=== PATIENT | male | born 1970 | race Caucasian/White ===

== ENCOUNTER → 2019-04-04 17:04 | Outpatient (BNVA) | payer SELFPAY | PROVIDERS: Visit Provider Nurse Practitioner Family | DX: I10 Essential (primary) hypertension (principal) | CPT/HCPCS: 80053; 80061; 84443; 85025 ==

== ENCOUNTER 2020-03-14 04:28 | Emergency (ER) | payer SELFPAY ==
[2020-03-14 04:32] VITALS: BP 127/83; PULSE 87; RESP 14; TEMP 36.7; O2SAT 99; BMI 32.1
[2020-03-14] MEDS: sodium chloride 0.9% 1,000 ML 999 ML IV (04:41)
[2020-03-14] MEDS: ondansetron 2 mg/ML SDV 2 mL 4 MG IVP ×2 (04:41→05:03)
--- NOTE | 2020-03-14 04:43 | ED_ITS ---
HPI - Abdominal Pain General: Chief Complaint: Abdominal Pain Stated Complaint: NAUSEA & UPPER ABD STOMACH PAIN Time Seen by Provider: 03/14/20 04:35 Source: patient Mode of arrival: ambulatory Limitations: no limitations History of Present Illness: HPI narrative: 49-year-old male states he is been having intermittent epigastric pain over the last 2 weeks but got much worse ton ight started midnight. States pain is sharp in nature it is a 7 out of 10. He has had nausea with one episode of vomiting. He denies any worsening improving factors. He has no history of any surgeries. Denies any fevers. MD elicited complaint: abdominal pain Pertinent past history: none Onset (ago): hour(s) Pain Consistency: constant Location: Epigastric Associated Symptoms: Reports nausea and vomiting; Denies chills, dysuria and fever(s) Review of Systems Const: Denies: fever(s), chills, body aches or change in appetite Eyes: Denies: blurry vision or eye discomfort ENMT: Denies: throat pain or dental pain Card: Denies: chest pain Resp: Denies: dyspnea GI: Reports: abdominal pain, nausea and vomiting : Denies: dysuria Musc: Denies: neck pain or back pain Skin/Breast: Denies: rash Neuro: Denies: headache(s) Psych: Denies: depression Lui/Lymph: Denies: easy bruising All/Imm: Denies: urticaria PFSH ED PFSH: Medical History Anxiety Family History Mother Diabetes Brother Diabetes Hypertension Father Cancer Other Lung disease Social History Smoking and tobacco status: current every day smoker cigarettes Packs smoked per day: 1 Years cigarettes smoked: 20 Second hand smoke exposure: No Alcohol intake: never Lives independently: Yes Household members: spouse Housing: House Marital status: Current occupational status: employed 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 History of recent travel: No Current gender identity: Male Physical Exam Const: COMMON NORMALS: no acute distress, patient oriented x3 and healthy appearing HENMT: COMMON NORMALS: normocephalic and atraumatic HEAD & SCALP: normocephalic and atraumatic Eye: COMMON NORMALS: Equal, round and reactive pupils present and EOMs intact bilaterally PUPIL: Yes Equal, round and reactive pupils present Neck/C-Spine: COMMON NORMALS: full ROM and supple Chest: COMMONS NORMALS: normal inspection of the chest and normal palpation of entire chest wall Resp: COMMON NORMALS: normal respiratory effort, No retractions, No use of accessory muscles and clear to auscultation bilaterally AUSCULTATION: clear to auscultation bilaterally Cardio: COMMON NORMALS: regular rate, regular rhythm and No murmurs present (Cardio) RATE: regular rate RHYTHM: regular rhythm GI: COMMON NORMALS: Normal to inspection, nondistended, normoactive bowel sounds present, Soft to palpation and no masses PALPATION: Yes Soft to palpation and Yes Tenderness to palpation present (GI) (epigastric tenderness) Extremity: COMMON NORMALS: normal to inspection and full ROM Neuro: COMMON NORMALS: patient oriented x3, moves all extremities and no focal motor deficits Psych: COMMON NORMALS: mental status grossly normal, Normal thought process present and cooperative THOUGHT PROCESS: Normal thought process present Skin: COMMON NORMALS: no rashes or lesions noted and no wounds GENERAL SKIN EXAM: no rashes or lesions noted Course Vital Signs: Vital signs: Vital Signs Temperature 98.1 F 03/14/20 04:32 Pulse Rate 87 03/14/20 04:32 Respiratory Rate 18 03/14/20 05:06 Blood Pressure 127/83 03/14/20 04:32 Pulse Oximetry 100 03/14/20 05:06 MDM - Abdominal Pain MDM Narrative: Medical decision making narrative: 42 presents with abdominal pain likely from gallstones. He has no signs of acute cholecystitis and his pain is much improved. Patient started on pain meds and will have him follow-up with Dr. Gtz. He is return if worsening. He has no signs of common bile duct blockage. He understands agrees to plan. Lab Data: Labs: Lab Results 03/14/20 03/14/20 Range/Units 04:43 04:43 WBC 13.9 H (4.0-10.0) 10^3/ uL RBC 5.52 H (4.1-5.3) 10^6/u L Hgb 15.9 (11.7-16.6) g/dL Hct 48.1 (42.0-52.0) % MCV 87.1 (80-94) fL MCH 28.8 (28.0-34.0) pg MCHC 33.1 (30.0-36.0) g/dL RDW 14.1 (12.1-15.1) % Plt Count 315 (130-400) 10^3/c mm MPV 9.6 (7.4-10.4) fL Neut % (Auto) 67.8 % Lymph % (Auto) 23.0 % [place] % (Auto) 6.2 % Eos % (Auto) 2.0 % Baso % (Auto) 0.6 % Neut # (Auto) 9.43 H (1.8-7.7) 10^3/u L Lymph # (Auto) 3.2 (0.8-4.8) 10^3/u L [place] # (Auto) 0.9 (0.2-0.9) 10^3/u L Eos # (Auto) 0.3 (0.0-0.8) 10^3/u L Baso # (Auto) 0.1 (0.0-0.1) 10^3/u L Nucleated RBC % (a uto) 0 % Nucleated RBCs # 0.0 /100WBC Sodium 136 (136-145) mmol/L Potassium 4.2 (3.5-5.1) mmol/L Chloride 99 (98-107) mmol/L Carbon Dioxide 25 (22-29) mmol/L Anion Gap 16.2 (5-19) BUN 24 H (6-20) mg/dL Creatinine 0.9 (0.7-1.2) mg/dL GFR Calculation 90.4 (90-130) mL/min Glucose 131 H (65-115) mg/dL Calculated Osmolal ity 288 (285-295) mOsm/k g Calcium 10.0 (8.5-10.5) mg/dL Total Bilirubin 0.2 (0.15-1.2) mg/dL AST 20 (0-40) U/L ALT 27 (0-41) U/L Alkaline Phosphata se 89 (40-130) IU/L Total Protein 7.0 (6.6-8.7) g/dL Albumin 4.7 (3.5-5.2) g/dL Globulin 2.3 (1.3-4.6) g/dL Lipase 32 (13-60) U/L Imaging Data ^: CT Abd/Pel: Radiologist's impression: [employer] [place] [address] CT Scan Report Signed Patient: JOSEPH COYLE Unit #: [id number] : [id number] Acct#:[id number] Age/Sex: 49 / M ADM Date: 03/14/20 Loc: ER Room/Bed: Attending Dr: Ordering Provider/Ordering MD: Leslee Villeda MD Date of Service: 03/14/20 Procedure(s): CT abdomen pelvis w con* [id number] Accession Number(s): [id number] Report Number: [id number] PROCEDURE INFORMATION: Exam: CT Abdomen And Pelvis With Contrast Exam date and time: 03/14/2020 4:43 AM Age: 49 years old Clinical indication: Nausea and vomiting; Abdominal pain; Patient HX: Epigastric pain with n/v; Additional info: Abd pain TECHNIQUE: Imaging protocol: Computed tomography of the abdomen and pelvis with intravenous contrast. Radiation optimization: All CT scans at this facility use at least one of these dose optimization techniques: automated exposure control; mA and/or kV adjustment per patient size (includes targeted exams where dose is matched to clinical indication); or iterative reconstruction. Contrast material: OMNI 300; Contrast volume: 95 ml; Contrast route: INTRAVENOUS (IV); COMPARISON: No relevant prior studies available. RADIATION DOSE METRICS: Total DLP (mGy-cm): 1499.06 FINDINGS: Liver: No definite hepatic steatosis. No enhancing liver mass. Gallbladder and bile ducts: Several gallstones, with 1 of the 2 largest measuring 1.9 x 2.3 cm likely impacted in the gallbladder neck. Mild gallbladder distension, but no thickening of its wall or haziness in the fat along it. No biliary ductal dilatation. Pancreas: Slight fatty infiltration of the otherwise unremarkable pancreas. Spleen: No splenomegaly. Adrenal glands: No adrenal mass. Kidneys and ureters: Unremarkable. No hydronephrosis. Stomach and bowel: Marked sigmoid and at least moderate descending diverticulosis. Two transverse colonic diverticula also evident. No obstruction. Appendix: Normal appendix. Intraperitoneal space: No free air. Vasculature: Only a retroaortic left renal vein. Atherosclerosis. No aortic aneurysm. Moderate stenosis of the proximal SMA. Lymph nodes: No enlarged nodes. Urinary bladder: Unremarkable as visualized. Reproductive: Slight prostatic calcifications. Bones/joints: Old compression fractures. Degeneration of several discs. Apparent broad-based calcified prominent right foraminal focal disc protrusion at L5-S1 contributing to the at least moderate right foraminal stenosis. Bridging spurs along the anterior SI joints. Early bilateral hip joint degeneration. Soft tissues: Minimal periumbilical hernia containing fat. CT/CT abdomen pelvis w con* [id number] IMPRESSION: 1. Cholelithiasis. Probable impaction of the 1.9 x 2.3 cm stone in the gallbladder neck. 2. Prominent left colonic diverticulosis. Moderate stenosis of the proximal SMA. Other findings detailed above. Radiation Dose CTDIVOL = (mGy): DLP = 1499.06 (mGy Discharge Plan Discharge Patient Disposition: Home Clinical Impression: Cholelithiasis Qualifiers: Cholelithiasis location: gallbladder Cholecystitis presence: without cholecystitis Biliary obstruction: without biliary obstruction Qualified Code(s): K80.20 - Calculus of gallbladder without cholecystitis without obstruction Condition: Stable Prescriptions: [place] 5-325 mg tablet 1 tab PO Q6H PRN (Reason: pain) Qty: 14 RF: 0 ondansetron 4 mg tablet,disintegrating 4 mg PO Q6H PRN (Reason: nausea and vomiting) Qty: 14 RF: 0 levofloxacin 750 mg tablet 750 mg PO DAILY 5 Days Qty: 5 RF: 0 No Action omega-3 fatty acids 1,000 mg capsule 1,000 mg PO DAILY Qty: 90 RF: 4 sertraline 25 mg tablet 25 mg PO DAILY Qty: 90 RF: 3 losartan 50 mg tablet 50 mg PO DAILY Qty: 90 RF: 3 hydrochlorothiazide 25 mg tablet 25 mg PO QAM Qty: 90 RF: 3 Discharge Orders: Discharge ED (Routine); Ordered 03/14/20 Ordered By: Leslee Villeda Referrals: Cordell Gtz MD [Physician] - 1-3 days Discharge Diet: Advance as tolerated Discharge Activity: Resume usual activity Patient Instructions: Biliary Colic (ED) Coding Level of Care Code ED Drill Operator Automatic for Chg Fwd Exam Comprehensive
[2020-03-14] MEDS: iohexol 300 mg/mL 100 mL Btl IV (04:54)
[2020-03-14 04:55] LABS: Basophils # 0.1 10^3/uL (0.0-0.1); Basophils % 0.6 %; Eosinophils # 0.3 10^3/uL (0.0-0.8); Hematocrit 48.1 % (42.0-52.0); Hemoglobin 15.9 g/dL (11.7-16.6); Lymphocytes # 3.2 10^3/uL (0.8-4.8); Mean Corpuscular HGB Conc 33.1 g/dL (30.0-36.0); Mean Corpuscular Hemoglobin 28.8 pg (28.0-34.0); Mean Corpuscular Volume 87.1 fL (80-94); Mean Platelet Volume 9.6 fL (7.4-10.4); Monocytes # 0.9 10^3/uL (0.2-0.9); Monocytes % 6.2 %; Neutrophils # 9.43 10^3/uL (1.8-7.7); Neutrophils % 67.8 %; Nucleated Red Blood Cells % 0 %; Platelet Count 315 10^3/cmm (130-400); Red Blood Count 5.52 10^6/uL (4.1-5.3); Red Cell Distribution Width 14.1 % (12.1-15.1); White Blood Count 13.9 10^3/uL (4.0-10.0)
[2020-03-14 05:06] VITALS: RESP 18; O2SAT 100
[2020-03-14] MEDS: morphine 4 mg/mL SDV 1 mL IVP (05:06)
[2020-03-14 05:38] LABS: Alanine Aminotransferase 27 U/L (0-41); Albumin Level 4.7 g/dL (3.5-5.2); Alkaline Phosphatase 89 IU/L (40-130); Anion Gap 16.2 (5-19); Aspartate Amino Transferase 20 U/L (0-40); Blood Urea Nitrogen 24 mg/dL (6-20); Carbon Dioxide 25 mmol/L (22-29); Chloride 99 mmol/L (98-107); Globulin 2.3 g/dL (1.3-4.6); Glomerular Filtration Rate 90.4 mL/min (90-130); Glucose 131 mg/dL (65-115); Lipase 32 U/L (13-60); Osmolality Calculated 288 mOsm/kg (285-295); Potassium 4.2 mmol/L (3.5-5.1); Sodium 136 mmol/L (136-145); Total Bilirubin 0.2 mg/dL (0.15-1.2)
[2020-03-14 05:59] VITALS: BP 159/102; PULSE 82; RESP 18; O2SAT 99
--- NOTE | 2020-03-14 12:46 | DCPLANNER ---
Case manage had message to schedule a follow up appointment for patient with general surgery. manager garden emailed patients information to both Ines and Rita at [facility] general surgery. Patients information will be printed and reviewed. Clinic will call patient with appointment information.
--- NOTE | 2020-03-19 13:01 | DCPLANNER ---
Patient had a follow up appointment scheduled for Thursday, March 19, 2020 at 3:45 with general surgery. Clinic will call patient with appointment information.
--- NOTE | 2020-04-18 07:56 | DCPLANNER ---
Patient had a follow up appointment scheduled for 03.19.20 with general surgery - patient did attend appointment.
== END 2020-03-14 05:56 | disposition home or self-care (01) ==
PROVIDERS: Emergency Provider Emergency Medicine
DX: K80.20 Calculus of gallbladder without cholecystitis without obstruction (principal); F17.210 Nicotine dependence, cigarettes, uncomplicated
CPT/HCPCS: 12345; 74177; 80053; 83690; 85025; 96361; 96374; 96375; 99283; J2270; J2405; J7030; Q9967

== ENCOUNTER → 2020-03-19 16:31 | Outpatient (BNVA) | payer SELFPAY | PROVIDERS: Visit Provider Surgery | DX: Z01.812 Encounter for preprocedural laboratory examination (principal); K80.20 Calculus of gallbladder without cholecystitis without obstruction | CPT/HCPCS: 87635 ==

== ENCOUNTER 2020-03-21 08:09 | Day surgery (SDC) | payer SELFPAY ==
[2020-03-20 11:15] VITALS: BMI 33.0
[2020-03-21] VITALS (7 sets, daily range): BP systolic 106–132; BP diastolic 66–94; PULSE 64–83; RESP 12–19; TEMP 36.3–36.6; O2SAT 94–99
[2020-03-21] MEDS: sodium chloride 0.9% 1,000 ML 30 ML IV (08:40)
--- NOTE | 2020-03-21 09:36 | ANES.PREANE2 ---
Pre-Anesthetic Assessment Pre-Anesthetic Assessment: Height/Weight: Height 1.78 m Weight 104.326 kg Temp Pulse Resp BP Pulse Ox 97.8 F 83 18 125/94 97 03/21/20 08:20 03/21/20 08:20 03/21/20 08:20 03/21/20 08:20 03/21/20 08:20 Preop Diagnosis: Cholelithiasis Proposed Procedure: Operation Date: 03/21/20 09:30 Proposed Procedures p Laparoscopic Cholecystectomy 40716 K80.20(Not Applicable) - Jez Vences MD Familial anesthetic complications: None Was Beta Corby taken within 24 hours: N/A Last intake: Intake Last Liquid Date 03/20/20 Last Liquid Time 22:00 Last Solid Date 03/16/20 Last Solid Time 19:00 Social: Social History: Tobacco and No alcohol Exam: Pre-Anes Outpt Exam: alert, oriented x 3, clear to auscultation bilaterally and regular rate & rhythm Airway: Cervical ROM: WNL MP: 3 Dentition: Other (no teeth) CV/HEM: CV/HEM: HTN Anesthetic Plan: ASA status: 2 Anesthesia: MAC Risk of > 500 ml blood loss (7ml/kg in children): No Meds/Allergies Current Medications: Current Medications Generic Name Dose Route Start Last Admin Trade Name Freq PRN Reason Stop Dose Admin Sodium Chloride 1,000 mls @ 30 ml s/hr 03/21/20 08:15 03/21/20 08:40 Sodium Chloride 0.9% IV 03/22/20 08:14 30 mls/hr .Q24H RILEY Administration PFSH Anesthesia PFSH: Medical History (Updated 03/19/20 @ 16:04 by Jez Vences MD) Anxiety Hypertension Family History Mother Diabetes Brother Diabetes Hypertension Father Cancer Other Lung disease Social History Smoking and tobacco status: current every day smoker cigarettes Packs smoked per day: 1 Years cigarettes smoked: 20 Second hand smoke exposure: No Alcohol intake: never Lives independently: Yes Household members: spouse Housing: House Marital status: Current occupational status: employed 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
--- NOTE | 2020-03-21 09:40 | W.PM.OPSUD ---
Surgery/Procedure H&P Update DATE OF PROCEDURE: March 21, 2020 DATE H&P PERFORMED: 03/19/20 H&P UPDATE INFORMATION: I have reviewed H&P completed within last 30 days, I have examined patient prior to procedure and No changes to prior documentation PREOP DIAGNOSIS: Cholelithiasis PLANNED PROCEDURE: Operation Date: 03/21/20 09:30 Proposed Procedures p Laparoscopic Cholecystectomy 63016 K80.20(Not Applicable) - Jez Vences MD
--- NOTE | 2020-03-21 11:44 | PM.OP ---
Operative Report Date of procedure: March 21, 2020 Pre-op Diagnosis: Cholelithiasis Post-op Diagnosis: 1. Cholelithiasis 2. Chronic cholecystitis Procedure Done: Laparoscopic cholecystectomy Specimens removed/disposition: Gallbladder Surgeon: Jez Vences Anesthesia: General Condition: stable Disposition: PACU Procedure: The patient was taken to the operating room and was intubated under general anesthesia. After the antibiotic had been administered, the abdomen was prepped and draped in a sterile manner. Using a #15 blade, a 1 centimeter infraumbilical curvilinear incision was made and using an open Francie technique the peritoneal cavity was entered. A 10 millimeter port was placed and 15 millimeters of pneumoperitoneum was created. A 10 millimeter, 30 degrees scope was then introduced. Three 5 millimeter ports were placed in the epigastric, midclavicular and the anterior axillary line two fingerbreadths below the costal margin on the right side under the direct visualization. The gallbladder was distended and wall thickened. Ratcheted forceps were introduced into the lateral most port and was used to retract the fundus of the gallbladder cephalad and using forceps the infundibulum of the gallbladder was retracted laterally. 60cc of bile was aspirated using an aspirating needle. Using L-hook cautery the peritoneum overlying the Calot's triangle was opened medially and laterally until the cystic duct and the cystic artery were skeletonized. Dissection was carried along the body of the gallbladder and after ensuring critical view of safety, 4 clips applied on the cystic duct and 3 clips applied on the cystic artery and cut leaving, 3 clips on the remaining portion of the duct and 2 clips on the remaining portion of the artery. The rest of the gallbladder was dissected off the liver using L-hook cautery. There was no bleeding or bile leaking noted from the gallbladder fossa and the clips appeared to be in place. An EndoCatch bag was introduced to remove the gallbladder. All the ports were removed under direct visualization and there was no bleeding noted from the port sites. The fascia of the umbilicus was closed using [id number] 0 Vicryl sutures and the subcutaneous tissue was approximated using 3-0 Vicryl sutures. The skin at all four ports were closed using 4-0 Monocryl and Dermabond. A total of 10 millimeters of 0.5% Marcaine was infiltrated around the port sites. The patient was stable throughout the procedure.
[2020-03-21] MEDS: oxyCODONE-APAP 5-325 mg Tablet 1 TAB PO (12:04)
--- NOTE | 2020-03-21 14:09 | ANE.PACU2 ---
Inpatient post-anesthesia follow up: Airway intact: Yes Vital signs: Temperature 97.5 F Pulse Rate 77 Respiratory Rate 18 Blood Pressure 106/66 Pulse Oximetry 96 Oxygen Delivery Me thod Room Air Oxygen Flow Rate 8 Fraction of Inspir ed Oxygen Hydration adequate: Yes Nausea and vomiting: No Pain level: 2 Mental status: Baseline
== END 2020-03-21 12:27 | disposition home or self-care (01) ==
PROVIDERS: Visit Provider Surgery
PROC: 0FT44ZZ Resection of Gallbladder, Percutaneous Endoscopic Approach (ICD-10-PCS; CPT 47562; principal; 2020-03-21 09:30)
DX: K80.10 Calculus of gallbladder with chronic cholecystitis without obstruction (principal); I10 Essential (primary) hypertension; F41.9 Anxiety disorder, unspecified; F17.210 Nicotine dependence, cigarettes, uncomplicated
CPT/HCPCS: 47562; 12345; 88304; J0690; J1100; J2250; J2405; J2704; J2710; J3010; J3490; J7030

== ENCOUNTER → 2021-01-08 08:49 | Outpatient (BNVA) | payer SELFPAY | PROVIDERS: Visit Provider Orthopaedic Surgery | DX: M25.571 Pain in right ankle and joints of right foot (principal) | CPT/HCPCS: 73660 ==

== ENCOUNTER → 2022-03-03 09:39 | Outpatient (BNVA) | payer SELFPAY | PROVIDERS: PCP Nurse Practitioner Family; Visit Provider Nurse Practitioner Family | DX: I10 Essential (primary) hypertension (principal) | CPT/HCPCS: 80053; 80061; 84443; 85025 ==

== ENCOUNTER → 2023-02-17 15:30 | Outpatient (BNVA) | payer SELFPAY | PROVIDERS: PCP Nurse Practitioner Family; Visit Provider Nurse Practitioner Family | DX: I10 Essential (primary) hypertension (principal); F41.9 Anxiety disorder, unspecified; F17.210 Nicotine dependence, cigarettes, uncomplicated | CPT/HCPCS: 80053; 80061; 82306; 82607; 83735; 84443; 85025 ==

== ENCOUNTER → 2024-03-23 10:59 | Outpatient (BNVA) | payer SELFPAY | PROVIDERS: Family Provider Nurse Practitioner Family; PCP Nurse Practitioner Family; Visit Provider Nurse Practitioner Family | DX: I10 Essential (primary) hypertension (principal); Z12.5 Encounter for screening for malignant neoplasm of prostate | CPT/HCPCS: 80053; 80061; 83036; 84443; 85025; G0103 ==

== ENCOUNTER → 2025-01-17 11:12 | Outpatient (BNVA) | payer SELFPAY | PROVIDERS: Family Provider Nurse Practitioner Family; PCP Nurse Practitioner Family; Visit Provider Nurse Practitioner Family | DX: I10 Essential (primary) hypertension (principal) | CPT/HCPCS: 80053; 80061; 83036; 84443; 85025 ==